=== PATIENT | male | born 1970 | race Caucasian/White ===

== ENCOUNTER 2016-09-21 21:28 | Emergency (ER) | payer SELFPAY ==
[2016-09-21] MEDS ORDERED: 0.9 % SODIUM CHLORIDE 1,000 ML IV ONE (21:39)
[2016-09-21] MEDS ORDERED: ONDANSETRON HCL/PF 4 MG/ 2ML VIAL ONE (21:53)
[2016-09-21] MEDS ORDERED: PHENAZOPYRIDINE HCL 200 MG TABLET PO ONE ×2 (21:53→21:57)
[2016-09-21] MEDS ORDERED: KETOROLAC TROMETHAMINE 30 MG/1ML VIAL ONE (21:53)
[2016-09-21] MEDS ORDERED: ONDANSETRON HCL/PF 4 MG/ 2ML VIAL IVP ONE (21:57)
[2016-09-21] MEDS ORDERED: KETOROLAC TROMETHAMINE 30 MG/1ML VIAL IVP ONE (21:57)
[2016-09-21] MEDS ORDERED: HYOSCYAMINE SULFATE 0.125 MG TAB.SUBL SL SCH ×2 (22:00)
[2016-09-21] MEDS ORDERED: 0.9 % SODIUM CHLORIDE 1,000 ML IV SCH (22:00)
[2016-09-21] MEDS ORDERED: HYDROmorphone HCL/PF 1 MG/ML DISP.SYRIN IVP ONE (22:07)
[2016-09-21 22:53] LABS: BASOPHILS % 1.1 (0.0-1.5); EOSINOPHILS % 2.7 % (0.0-6.8); MEAN CORPUSCULAR HEMOGLOBIN 32.5 pg (28.0-34.0); MEAN CORPUSCULAR VOLUME 95.3 fl (80.0-100.0)
[2016-09-21 23:03] LABS: eGFR (African) > 60; eGFR (Non-African) > 60
[2016-09-21] MEDS ORDERED: POTASSIUM CHLORIDE 20 MEQ TABLET.ER ONE (23:12)
[2016-09-21] MEDS ORDERED: POTASSIUM CHLORIDE 20 MEQ TABLET.ER PO ONE (23:12)
[2016-09-21] MEDS ORDERED: oxyCODONE/ACETAMINOPHEN 5/325 TABLET PO ONE (23:25)
[2016-09-21 23:44] VITALS: BP 116/58
--- NOTE | 2016-09-22 00:55 | ED Physician Documentation ---
Flank Pain - HISTORIAN Historian: patient - HPI Stated Complaint: left flank pain Chief Complaint: Flank Pain Additional Information: x 1 week, left flank Onset: days ago (7) Duration: sudden-onset, persistent Timing: still present Context: denies: out of country travel, bad food, recent trauma Severity: moderate Quality: aching Associated Symptoms: nausea, back pain Exacerbated by: nothing Relieved by: nothing Further Comments: no - ROS CONST: no problems GI/: bloody urine CVS/RESP: none MS/SKIN/LYMPH: none NEURO/PSYCH: none - SOCIAL HX Smoking History: cigarettes Alcohol Use: occasionally Drug Use: none - FAMILY HX Family History: no significant history - PAST HX Past History: kidney stones, other (rhabdomyleosis) Ischemic Bowel Risk Factors: none Other History: none Surgeries/Procedures: none Immunizations: referred to PCP Medications: none Allergies: NKDA - VITAL SIGNS Vital Signs: Vital Signs Temp Pulse Resp BP Pulse Ox 98.4 F 72 16 116/58 99 09/21/16 21:53 09/21/16 23:42 09/21/16 23:42 09/21/16 23:42 09/21/16 23:42 - REVIEWED ASSESSMENTS Nursing Assessment Reviewed: Yes Vitals Reviewed: Yes Progress - Results/Orders Results/Orders: ct abd/pelvis reveals double collecting system right, no stones - Progress Progress: pt. given dilaudid 1 mg ivp, 1 liter ns, pyridium 200 mg p.o. tid, hyoscyamine 0.25 mg p.o., 40 meq potassium p.o., zofran 8 mg ivp, toradol 30 mg ivp and eventuall 2 percocet 5/325 p.o. when dilaudid effect wearing off. Improved with meds. Critical Care Note - Critical Care Note Total Time (mins): 0 ED Results Lab/Radiology - Lab Results Lab Results: Lab Results 09/21/16 09/21/16 22:48 22:00 WBC 6.80 K/ul K/ul (4.00-12.00) RBC 4.62 M/ul M/ul (3.90-5.20) Hgb 15.0 g/dL g/dL (12.0-18.0) Hct 44.0 % % (37.0-53.0) MCV 95.3 fl fl (80.0-100.0) MCH 32.5 pg pg (28.0-34.0) MCHC 34.1 g/dL g/dL (30.0-36.0) RDW 13.4 % % (11.3-14.3) Plt Count 217 K/mm3 K/mm3 (130-400) Neut % (Auto) 43.9 % % (39.0-79.0) Lymph % (Auto) 44.4 % % (16.0-50.0) [place] % (Auto) 6.0 % % (0.0-11.0) Eos % (Auto) 2.7 % % (0.0-6.8) Baso % (Auto) 1.1 (0.0-1.5) Neut # 3.0 # k/uL # k/uL (1.4-7.7) Lymph # 3.0 # k/uL # k/uL (0.6-4.0) [place] # 0.4 # k/uL # k/uL (0.0-0.9) Eos # 0.2 # k/uL # k/uL (0.0-0.6) Baso # 0.1 # k/uL # k/uL (0.0-0.5) Reactive Lymphs % 1.8 % % (0.0-5.0) Reactive Lymphs # 0.1 # k/uL # k/uL (0.0-0.8) Sodium 139 mmol/L mmol/L (136-145) Potassium 3.0 mmol/L L mmol/L (3.5-5.0) Chloride 96 mmol/L L mmol/L (98-110) Carbon Dioxide 31 mmol/L mmol/L (20-32) BUN 10 mg/dL mg/dL (10-26) Creatinine 1.0 mg/dL mg/dL (0.4-1.5) Estimated Creat Clear 110 Est GFR ( Amer) > 60 (60 - ) Est GFR (Non-Af Amer) > 60 (60 - ) Glucose 99 mg/dL mg/dL (70-99) Calcium 10.0 mg/dL mg/dL (8.5-10.5) Total Bilirubin 0.8 mg/dL mg/dL (0.2-1.2) AST 38 U/L U/L (0-41) ALT 26 U/L U/L (0-45) Alkaline Phosphatase 56 U/L U/L (46-116) Creatine Kinase 851 U/L H U/L (0-225) Total Protein 7.7 g/dL g/dL (6.0-8.5) Albumin 5.0 g/dL g/dL (3.0-5.5) - Radiology Radiology Impressions: ct pos for dual collecting system right - Orders Orders: ED Orders Category Date Time Status Saline Lock [Remove IV/Saline Lock] 1T Care 09/21/16 21:[address] ABD & PELVIS W/O CON Stat Exams 09/21/16 Taken CBC/PLATELET/DIFF Routine Lab 09/21/16 22:00 Completed CMP Routine Lab 09/21/16 22:48 Completed URINALYSIS Routine Lab 09/21/16 22:00 Ordered ck [CREATINE KINASE] Routine Lab 09/21/16 22:48 Completed 0.9 % Sodium Chloride [Normal Saline] 1,000 ml Med 09/21/16 22:00 Discontinued IV .Q1H 0.9 % Sodium Chloride [Normal Saline] 1,000 ml Med 09/21/16 21:39 Discontinued IV .STK-MED HYDROmorphone HCL/PF [Dilaudid] Med 09/21/16 22:07 Discontinued 1 mg IVP NOW ONE Hyoscyamine Sulfate [Oscimin Sl] Med 09/21/16 22:00 Discontinued 0.25 mg SL 1T Hyoscyamine Sulfate [Oscimin Sl] Med 09/21/16 22:00 Discontinued 0.25 mg SL TID Ketorolac Tromethamine [Toradol] Med 09/21/16 21:53 Discontinued 30 mg .ROUTE .STK-MED ONE Ketorolac Tromethamine [Toradol] Med 09/21/16 21:57 Discontinued 30 mg IVP NOW ONE Ondansetron HCl/Pf [Zofran 4 mg/2 ml] Med 09/21/16 21:53 Discontinued 8 mg .ROUTE .STK-MED ONE Ondansetron HCl/Pf [Zofran 4 mg/2 ml] Med 09/21/16 21:57 Discontinued 8 mg IVP NOW ONE Phenazopyridine HCl [Pyridium] Med 09/21/16 21:53 Discontinued 200 mg PO .STK-MED ONE Phenazopyridine HCl [Pyridium] Med 09/21/16 21:57 Discontinued 200 mg PO NOW ONE Potassium Chloride [Klor-Con M20] Med 09/21/16 23:12 Discontinued 40 meq .ROUTE .STK-MED ONE Potassium Chloride [Klor-Con M20] Med 09/21/16 23:12 Discontinued 40 meq PO NOW ONE oxyCODONE HCL/ACETAMINOPHEN [Percocet 5-325 mg Tablet] Med 09/21/16 23:25 Discontinued 2 each PO NOW ONE Abdominal Pain Physical Exam - Physical Exam General Appearance: alert, moderate distress EENT: eye inspection normal, ENT inspection normal, pharynx normal, no signs of dehydration, SHIRA, no nystagmus, TM's nml NECK: normal inspection, thyroid normal, supple RESPIRATORY: no resp distress, chest non-tender CVS: reg rate & rhythm, heart sounds normal, equal pulses, no murmur ABDOMEN: soft, normal bowel sounds, tenderness (suprapubic area, bilateral flank ) BACK: normal inspection, no CVA tenderness SKIN: warm/dry, normal color EXTREMITIES: non-tender, normal range of motion, no evidence of injury, no edema NEURO: oriented X3, CN's nml as tested, motor nml, sensation nml, mood/affect nml, cognition normal Vital Signs: Vital Signs Temp Pulse Resp BP Pulse Ox 98.4 F 72 16 116/58 99 09/21/16 21:53 09/21/16 23:42 09/21/16 23:42 09/21/16 23:42 09/21/16 23:42 Discharge Clincal Impression: Hypokalemia Rhabdomyolysis Qualifiers: Rhabdomyolysis type: non-traumatic Qualified Code(s): M62.82 - Rhabdomyolysis Referrals: Primary Doctor,No [Primary Care Provider] - 2 Days Home Medications: Ambulatory Orders Aspirin [Caitlin] 325 mg PO DAILY 09/21/16 Comments: home with scripts for tizanidine 4 mg p.o. qid, meloxicam 7.5 mg p.o. bid, potassium 10 meq p.o. daily and pyridium 200 mg p.o. tid. Condition: Stable Disposition: 01 HOME, SELF-CARE Decision to Admit: NO Decision Time: 23:40
--- NOTE | 2016-09-22 04:00 | Diagnostic Imaging Report ---
IRAIS CR~ [facility] [address] [facility] [address] [place], [place]. [address] ~ ~ ~ ~ Report Submission Date: September 21, 2016 10:41:53 PM CDT Patient ~ Study Name: BRET MEHTA ~ Date: September 21, 2016 10:10:18 PM CDT ~ Modality Type: CT\SR Gender: M ~ Description: CT ABD & PELVIS W/O CO : 74 ~ Institution: [facility] Physician: IRAIS CR ~ ~ ~ ~ CT abdomen and pelvis without contrast Date of study: September 21, 2016. CLINICAL HISTORY:~ 46/M COMPLAINS OF RIGHT FLANK PAIN X 1 DAY; HX OF MULTIPLE KIDNEY STONES (Hx) / FLANK PAIN (DICOM Hx) TECHNIQUE: 2.5 mm contiguous axial images of the abdomen and pelvis non contrast.~ FINDINGS: The lung bases are clear. Abdomen: The liver, pancreas and spleen are normal in appearance. The gallbladder is unremarkable. The kidneys are normal in size and surface contour. The right renal pelvis and right and lower pole ureter are slightly prominent and may represent mild right hydronephrosis. 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 There is no evidence of renal or ureteral calculi. ~The aorta is normal in caliber. The small and large bowel are nondistended. There is no evidence of free air or free fluid. Pelvis: The small and large bowel remain normal in appearance. The distal ureters and bladder are normal in appearance. There is no evidence of distal ureteral or intravesicular calculi. The appendix is normal. There is no evidence of free air or free fluid. The sigmoid colon and rectum are normal. Right anterior abdominal wall surgical clips are noted. The remaining pelvic structures are within normal limits and the bones of the pelvis are intact. 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 Recommend follow up IVP. ~ Electronically signed on September 21, 2016 10:41:53 PM CDT by: Felisa KEENE
[2016-09-22 05:34] LABS: APPEARANCE,URINE CLEAR (CLEAR); COLOR,URINE YELLOW (YELLOW); OCCULT BLOOD,URINE 2+ (NEGATIVE); UROBILINOGEN URINE 0.2 Eu (0.2-1.0)
== END 2016-09-21 23:42 | disposition home or self-care (01) ==
LOC: ED 21:28
DX: M62.82 Rhabdomyolysis (principal); E87.6 Hypokalemia
CPT/HCPCS: 74176; 80053; 81002; 82550; 85025; A9270; J1170; J1885; J2405; J7030; 96361; 96374; 96375; 99283; S1016

== ENCOUNTER 2017-09-22 04:07 | Emergency (ER) | payer SELFPAY ==
--- NOTE | 2017-09-22 04:16 | ED Physician Documentation ---
General Adult - HISTORIAN Historian: patient - HPI Stated Complaint: N/V Chief Complaint: Nausea,Vomiting,Diarrhea Onset: minutes (45) Timing: better, gone now Further Comments: yes (He states he was at work at the [employer] and he had chili cheese fries and he had nausea after and 3 episodes of vomiting. He states he was brought to the ER due to his work calling the ambulance and he is better now and would like to return to work. Denies any current nausea. Denies any abdominal pain. No further complaints) - ROS CONST: no problems EYES/ENT: none CVS/RESP: none GI/: vomiting, nausea. denies: abdominal pain MS/SKIN/LYMPH: none - PAST HX Past History: none Other History: none Surgeries/Procedures: none Immunizations: UTD Allergies/Adverse Reactions: Allergies Allergy/AdvReac Type Severity Reaction Status Date / Time No Known Allergies Allergy Verified 09/21/16 21:48 Home Medications: Ambulatory Orders Medication Instructions Recorded Aspirin [Caitlin] 325 mg PO DAILY 09/21/16 - SOCIAL HX Smoking History: non-smoker Alcohol Use: none Drug Use: none - FAMILY HX Family History: No - VITAL SIGNS Vital Signs: Vital Signs Temp Pulse Resp BP Pulse Ox 116/58 09/21/16 23:42 - REVIEWED ASSESSMENTS Nursing Assessment Reviewed: Yes Vitals Reviewed: Yes General Adult Physical Exam - PHYSICAL EXAM GENERAL APPEARANCE: no distress EENT: eye inspection normal NECK: normal inspection RESPIRATORY: no resp distress, chest non-tender, breath sounds normal CVS: reg rate & rhythm, heart sounds normal, equal pulses, no murmur ABDOMEN: soft, normal bowel sounds, no distension, non-tender SKIN: warm/dry, normal color EXTREMITIES: non-tender, normal range of motion, no evidence of injury, no edema NEURO: oriented X3, CN's nml as tested, motor nml, sensation nml, mood/affect nml, cognition normal Discharge Clincal Impression: Nausea & vomiting Qualifiers: Vomiting type: unspecified Vomiting Intractability: unspecified Qualified Code( s): R11.2 - Nausea with vomiting, unspecified Referrals: Primary Doctor,No [Primary Care Provider] - 2 Days Comments: 1. bland foods 2. Increase fluids 3. Return to PCP in 2-4 days if continues 4. Return to ER for N/V that is not controlled or other concerns Condition: Stable Disposition: 01 HOME, SELF-CARE Decision to Admit: NO Date of Decison to Admit: 09/22/17 Decision Time: 04:17
[2017-09-22] MEDS ORDERED: 0.9 % SODIUM CHLORIDE 1,000 ML IV ONE (04:37)
--- NOTE | 2017-09-22 04:40 | ED Physician Documentation ---
Headache - HISTORIAN Historian: patient - HPI Stated Complaint: Headahce with "seeing spots" Chief Complaint: Headache Onset: hours (1) Timing: gradual New Gradual Onset: No Exposure To: none Severity: moderate Quality: similar to previous Associated Symptoms: problems with vision, sensitivity to light, nausea. denies : fever, chills, sweating, vomiting, speech problems, weakness, light-headedness Preceding Symptoms: visual disturbance Exacerbated By: light Further Comments: yes (He states he was "at the boat and was drinking a little noticed that he started to have a migraine and then seeing spots I thought my blood sugar was going low so I went to the room to eat and the symptoms increased" . He states he is not sure how much water he had today. He reports a history of migraines but the spots tonight seem "a little bit different" . He denies any head injury. He has no other syptoms. Long history of Rhabdomyalsis. He states he continues to fight joint and muscle pain from this condition 3 years ago.) Last known Well Code/Unknown Code: Unknown - ROS NEURO/PSYCH: denies: confusion, anxiety, depression EYES/ENT: denies: sore throat, difficulty swallowing CVS/RESP: denies: chest pain, shortness of breath GI/: denies: diarrhea MS/SKIN/LYMPH: denies: rash - PAST HX Medical History: migraines, other Surgical History: no surgical history Immunizations: UTD Allergies/Adverse Reactions: Allergies Allergy/AdvReac Type Severity Reaction Status Date / Time No Known Allergies Allergy Verified 09/22/17 04:42 Home Medications: Ambulatory Orders Medication Instructions Recorded Aspirin [Caitlin] 325 mg PO DAILY 09/21/16 - SOCIAL HX Smoking History: non-smoker Alcohol Use: rarely (he did drink tonight) Drug Use: none - Family HX Family History: none - VITAL SIGNS Vital Signs: Vital Signs Temp Pulse Resp BP Pulse Ox 98.2 F 79 16 119/70 99 09/22/17 06:16 09/22/17 06:16 09/22/17 06:16 09/22/17 06:16 09/22/17 06:16 - REVIEWED ASSESSMENTS Nursing Assessment Reviewed: Yes Vitals Reviewed: Yes Progress - Progress Progress: 0545: Resting quietly DG 0605: Discharge plan discussed with pt DG ED Results Lab/Radiology - Lab Results Lab Results: Lab Results 09/22/17 09/22/17 09/22/17 05:30 05:30 05:30 WBC 5.00 K/ul K/ul (4.00-12.00) RBC 4.21 M/ul M/ul (3.90-5.20) Hgb 13.6 g/dL g/dL (12.0-18.0) Hct 40.7 % % (37.0-53.0) MCV 96.8 fl fl (80.0-100.0) MCH 32.3 pg pg (28.0-34.0) MCHC 33.4 g/dL g/dL (30.0-36.0) RDW 13.2 % % (11.3-14.3) Plt Count 240 K/mm3 K/mm3 (130-400) Neut % (Auto) 65.9 % % (39.0-79.0) Lymph % (Auto) 23.2 % % (16.0-50.0) [place] % (Auto) 5.2 % % (0.0-11.0) Eos % (Auto) 2.7 % % (0.0-6.8) Baso % (Auto) 0.9 (0.0-1.5) Neut # (Auto) 3.3 # k/uL # k/uL (1.4-7.7) Lymph # (Auto) 1.2 # k/uL # k/uL (0.6-4.0) [place] # (Auto) 0.3 # k/uL # k/uL (0.0-0.9) Eos # (Auto) 0.1 # k/uL # k/uL (0.0-0.6) Baso # (Auto) 0.0 # k/uL # k/uL (0.0-0.5) Reactive Lymphs % 2.0 % % (0.0-5.0) Reactive Lymphs # 0.1 # k/uL # k/uL (0.0-0.8) ESR 6 mm/hr mm/hr (0-15) Sodium 133 mmol/L L mmol/L (136-145) Potassium 3.5 mmol/L mmol/L (3.5-5.1) Chloride 98 mmol/L mmol/L (98-107) Carbon Dioxide 26 mmol/L mmol/L (22-30) BUN 14 mg/dL mg/dL (9-20) Creatinine 0.90 mg/dL mg/dL (0.66-1.25) Estimated Creat Clear 124 Est GFR ( Amer) > 60 (60 - ) Est GFR (Non-Af Amer) > 60 (60 - ) Glucose 97 mg/dL mg/dL (74-106) Calcium 8.9 mg/dL mg/dL (8.4-10.2) Total Bilirubin 0.2 mg/dL mg/dL (0.2-1.3) AST 28 U/L U/L (15-46) ALT 32 U/L U/L (13-69) Alkaline Phosphatase 68 U/L U/L (38-126) Total Protein 6.8 g/dL g/dL (6.3-8.2) Albumin 4.1 g/dL g/dL (3.5-5.0) Urine Color Urine Appearance Urine pH Ur Specific [place] Urine Protein Urine Ketones Urine Occult Blood Urine Nitrite Urine Bilirubin Urine Urobilinogen Ur Leukocyte Esterase Urine Glucose 09/22/17 05:00 WBC RBC Hgb Hct MCV MCH MCHC RDW Plt Count Neut % (Auto) Lymph % (Auto) [place] % (Auto) Eos % (Auto) Baso % (Auto) Neut # (Auto) Lymph # (Auto) [place] # (Auto) Eos # (Auto) Baso # (Auto) Reactive Lymphs % Reactive Lymphs # ESR Sodium Potassium Chloride Carbon Dioxide BUN Creatinine Estimated Creat Clear Est GFR ( Amer) Est GFR (Non-Af Amer) Glucose Calcium Total Bilirubin AST ALT Alkaline Phosphatase Total Protein Albumin Urine Color Yellow (YELLOW) Urine Appearance Clear (CLEAR) Urine pH 6.0 (5.0 - 8.0) Ur Specific [place] 1.010 (1.010-1.030) Urine Protein Negative mg/dL mg/dL (NEGATIVE) Urine Ketones Negative mg/dL mg/dL (NEGATIVE) Urine Occult Blood Tr (NEGATIVE) Urine Nitrite Negative (NEGATIVE) Urine Bilirubin Negative (NEGATIVE) Urine Urobilinogen 0.2 Eu Eu (0.2-1.0) Ur Leukocyte Esterase Negative (NEGATIVE) Urine Glucose Negative mg/dL mg/dL (NEGATIVE) - Radiology Radiology Impressions: HISTORY: 47-year-old male with headache, seeing spots. COMPARISON: None available TECHNIQUE: Noncontrast axial CT images of the head were performed. Sagittal and coronal reformatted images were obtained. FINDINGS: No intracranial hemorrhage, mass, midline shift, hydrocephalus, or evidence of acute large vessel infarct. The mastoid air cells and middle ear spaces are clear. There is mucosal thickening in the ethmoid air cells. The nasal septum is deviated to the left. The optic globes are symmetric. No cranial fracture or scalp edema. IMPRESSION: 1. No acute intracranial process. 2. Bilateral ethmoid sinus disease. Electronically signed on September 22, 2017 4:53:41 AM CDT by: Filiberto Hernandez - Orders Orders: ED Orders Category Date Time Status IV Started NOW Care 09/22/17 04:[address] BRAIN W/O CONTRAST Stat Exams 09/22/17 Completed CBC/PLATELET/DIFF Routine Lab 09/22/17 05:30 Completed CMP Routine Lab 09/22/17 05:30 Completed SEDIMENTATION RATE (ESR) Routine Lab 09/22/17 05:30 Completed UA MACRO DIP ONLY Routine Lab 09/22/17 05:00 Completed 0.9 % Sodium Chloride [Normal Saline] 1,000 ml Med 09/22/17 05:00 Discontinued IV Q10H 0.9 % Sodium Chloride [Normal Saline] 1,000 ml Med 09/22/17 04:37 Discontinued IV Q1H Dexamethasone Sod Phosphate [Decadron] Med 09/22/17 05:06 Discontinued 4 mg IVP NOW ONE Ketorolac Tromethamine [Toradol] Med 09/22/17 05:06 Discontinued 30 mg IVP NOW ONE Headache Physical Exam - EXAM General Appearance: no acute distress, alert EENT: no facial swelling, eyes nml inspection, PERRL Neck: normal inspection Respiratory: no resp distress, chest non-tender, breath sounds normal CVS: reg. rate & rhythm, heart sounds nml Abdomen: non-tender, nml bowel sounds Skin: color nml, no rash Extremitites: non-tender - NEURO/PSYCH Higher Functions: alert, oriented x3, nml speech, mood/affect nml Cranial: nml as tested Cerebellar: nml as tested Sensorimotor: motor nml Discharge Clincal Impression: Nausea & vomiting Qualifiers: Vomiting type: unspecified Vomiting Intractability: unspecified Qualified Code( s): R11.2 - Nausea with vomiting, unspecified Migraine Qualifiers: Migraine type: persistent migraine aura without cerebral infarction Status migrainosus presence: without status migrainosus Intractability: not intractable Qualified Code(s): G43.509 - Persistent migraine aura without cerebral infarction, not intractable, without status migrainosus Referrals: Primary Doctor,No [Primary Care Provider] - 2 Days Additional Instructions: 1. Follow up with PCP on migraines 2. Return to ER for any concerns Condition: Stable Disposition: 01 HOME, SELF-CARE Decision to Admit: NO Date of Decison to Admit: 09/22/17 Decision Time: 06:08
[2017-09-22] MEDS ORDERED: 0.9 % SODIUM CHLORIDE 1,000 ML IV SCH (05:00)
[2017-09-22] MEDS ORDERED: KETOROLAC TROMETHAMINE 30 MG/1ML VIAL IVP ONE (05:06)
[2017-09-22] MEDS ORDERED: DEXAMETHASONE SOD PHOS 4 MG/ML VIAL IVP ONE (05:06)
[2017-09-22 05:37] LABS: BASOPHILS % 0.9 (0.0-1.5); EOSINOPHILS % 2.7 % (0.0-6.8); MEAN CORPUSCULAR HEMOGLOBIN 32.3 pg (28.0-34.0); MEAN CORPUSCULAR VOLUME 96.8 fl (80.0-100.0); MONOCYTES % 5.2 % (0.0-11.0); NEUTROPHILS # 3.3 # k/uL (1.4-7.7)
[2017-09-22 05:52] LABS: eGFR (African) > 60; eGFR (Non-African) > 60
[2017-09-22 06:18] VITALS: BP 119/70
[2017-09-22 07:14] LABS: APPEARANCE,URINE CLEAR (CLEAR); COLOR,URINE YELLOW (YELLOW); OCCULT BLOOD,URINE TR (NEGATIVE); UROBILINOGEN URINE 0.2 Eu (0.2-1.0)
--- NOTE | 2017-09-22 08:11 | Diagnostic Imaging Report ---
SUNNI LINDSEY [facility] [place] [facility] [address] [facility] [address] [place], [place]. [address] Report Submission Date: September 22, 2017 4:53:41 AM CDT Patient Study Name: BRET MEHTA Date: September 22, 2017 4:39:57 AM CDT Modality Type: CT\SR Gender: M Description: CT BRAIN W/O CONTRAST : 74 Institution: [facility] [place] [facility] Physician: SUNNI LINDSEY HISTORY: 47-year-old male with headache, seeing spots. COMPARISON: None available TECHNIQUE: Noncontrast axial CT images of the head were performed. Sagittal and coronal reformatted images were obtained. FINDINGS: No intracranial hemorrhage, mass, midline shift, hydrocephalus, or evidence of acute large vessel infarct. The mastoid air cells and middle ear spaces are clear. There is mucosal thickening in the ethmoid air cells. The nasal septum is deviated to the left. The optic globes are symmetric. No cranial fracture or scalp edema. IMPRESSION: 1. No acute intracranial process. 2. Bilateral ethmoid sinus disease. Electronically signed on September 22, 2017 4:53:41 AM CDT by: Filiberto KEENE
== END 2017-09-22 06:19 | disposition home or self-care (01) ==
LOC: ED 04:07
DX: G43.509 Persistent migraine aura without cerebral infarction, not intractable, without status migrainosus (principal); R11.2 Nausea with vomiting, unspecified
CPT/HCPCS: 70450; 80053; 81002; 85025; 85651; J1100; J1885; J7030; 96365; 96366; 96375; 99284; S1016